=== PATIENT | female | born 1950 | race Caucasian/White ===

== ENCOUNTER 2018-02-04 22:45 | Inpatient (IN) ==
--- NOTE | 2018-02-04 23:49 | Emergency Department Note ---
Abdominal Pain HPI - General Chief Complaint: Abdominal Pain Stated Complaint: Drank Soda Time Seen by Provider: 02/04/18 23:37 Mode of arrival: wheelchair - History of Present Illness HPI Narrative: Patient had previous stomach surgery, currently she is not supposed to drink carbonated beverages. However this evening she drank 2 carbonated beverages. She does have a history of dementia she comes from a long-term. She then proceeded to have a large bowel movement and was mainly concerned about the belching, did have abdominal pain earlier which was associated with the belching and then abdomininal pain subsequently. She does state that she has pain now pain seems to come and go all bloated and distended. She is able to give me some history however does not know which long-term she is from, she' s been there about a year, she has a house in [place] but is not able to go home secondary to memory issues. History of abdominal surgery, she is not sure what kind of surgery she's had a period does tell me that she had an episode of vomiting. Further history is obtained from the daughter who did drive back from [facility]. Daughter was headed to the [facility] and had visited with the patient this morning and apparently she was fairly normal at that time. Later in the day she was complaining of left shoulder pain and then subsequently developed abdominal pain as well as abdominal bloating. 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 MD Complaint: abdominal pain Location: diffuse - Related Data Home Medications Medication Instructions Recorded Confirmed Amoxicillin 500 mg PO Q8H 02/04/18 02/04/18 Ascorbic Acid [Vitamin C with Nena 500 mg PO BID 02/04/18 02/04/18 Hips] Cholecalciferol (Vitd3)/Vit K2 1 each PO DAILY 02/04/18 02/04/18 [Dosoquin Tablet] LORazepam [Ativan] 0.5 mg PO BID 02/04/18 02/04/18 Meloxicam 15 mg PO DAILY 02/04/18 02/04/18 PARoxetine [Paxil] 20 mg PO DAILY 02/04/18 02/04/18 QUEtiapine [Seroquel] 25 mg PO BID 02/04/18 02/04/18 Allergies Allergy/AdvReac Type Severity Reaction Status Date / Time No Known Drug Allergies Allergy Verified 02/04/18 23:19 Review of Systems Limitations: ROS unobtainable due to patients medical condition Constitutional: Denies: fever, chills ENT ED: Denies: throat pain Cardiovascular: Denies: chest pain, palpitations Respiratory: Denies: shortness of breath, cough Gastrointestinal: Reports: abdominal pain, nausea, vomiting Musculoskeletal: Denies: back pain Integumentary: Denies: rash Neurological: Denies: headache Psychiatric: Denies: anxiety Allergic/Immunologic: Denies: facial swelling Abdominal Pain PMH - Past Medical History Medical history: Reports: arthritis, dementia, renal disease, other (memory issues) Surgical history ED: Reports: other (prior abdominal surgery, midline lower abdominal incision. She is status post partial gastrectomy, Vijay fundoplication as well as hysterectomy) Psychiatric history: Reports: anxiety - Social History Smoking status: Never smoker Alcohol use: Reports: None Physical Exam Limitations: physical limitation General appearance: alert, in distress Head: atraumatic, normocephalic Eye: Present: normal appearance, PERRL, EOMI, other (status post cataract surgery) ENT: normal oropharynx, mucous membranes dry, TM's normal bilaterally Neck: Present: normal inspection, full ROM Chest: Present: normal inspection, symmetric chest wall rise Respiratory: Present: normal lung sounds bilaterally. Absent: respiratory distress Cardiovascular: Present: regular rate, normal rhythm, normal heart sounds Abdominal: Present: distention, tenderness, guarding, diminished bowel sounds Abdominal tenderness: Present: epigastrium, moderate Extremities: Present: normal inspection, full ROM, normal capillary refill. Absent: tenderness Back: Present: normal inspection, full ROM. Absent: CVA tenderness (R), CVA tenderness (L) Neurological: Present: alert. Absent: motor sensory deficit Psychiatric: Present: normal affect Skin: Present: warm, dry, intact Course - Reevaluation(s) Reevaluation #1: Abdominal x-rays obtained of. White blood cell count slightly elevated. She is not febrile at this point, she was passing gas in the department. X-rays showing massive air-fluid levels on the lateral film. Consistent with small bowel obstruction, likely partial at this time. Spoke with Dr. Mcclain and he endorsed medical admission, he will see her in the morning to consult, she is a questionable surgical candidate at this point given the fact that she does have dementia, she was a little bit agitated going to the x-ray suite, I don't know if she will comply with NG tube placement but we will attempt to do that with some mild sedation in. The daughter understands does have power of commonwealth attorney and she also has understands that if the patient would need surgery that this would be somewhat difficult in the setting underlying dementia. Patient does have DNR status however daughter still would like treatment, limited interventions which includes NG tube placement, IV fluid administration, medications for comfort. And pain. Vital Signs Temperature 99.1 F H 02/04/18 22:48 Pulse Rate 89 02/04/18 22:48 Respiratory Rate 20 02/04/18 22:48 Pulse Oximetry (%) 98 02/04/18 22:48 Temperature 99.1 F H 02/04/18 22:48 Pulse Rate 89 02/04/18 22:48 Respiratory Rate 20 02/04/18 22:48 Pulse Oximetry (%) 98 02/04/18 22:48 Abdominal Pain - MDM Narrative Medical decision making narrative: Final diagnosis is small bowel obstruction. Partially treated urinary tract infection from the long-term. We will start her on Ancef for that. Discussed with our hospitalist as well as Dr. Mcclain. - Lab Data Result diagrams: 02/04/18 23:59 02/04/18 23:59 Lab Results 02/04/18 02/04/18 02/04/18 Range/Units 23:59 23:59 23:59 WBC 12.6 H (4.5-11.0) K/mcL RBC 3.83 L (4.00-5.20) M/mcL Hgb 12.1 (12.0-15.0) g/dL Hct 36.1 (36.0-48.0) % MCV 94.4 (80.0-100.0) fL MCH 31.5 (26.0-34.0) pg MCHC 33.4 (31.0-36.0) g/dL RDW 13.3 (11.5-14.5) % Plt Count 220 (140-440) K/mcL MPV 8.6 (7.4-10.4) fL Gran % 81.6 H (38.0-78.0) % Lymph % (Auto) 12.2 L (15.5-49.0) % Valley % (Auto) 5.3 (1.0-12.0) % Eos % (Auto) 0.5 (0.0-7.0) % Baso % (Auto) 0.4 (0.0-2.0) % Gran # 10.3 H (1.8-8.0) K/mcL Lymph # (Auto) 1.5 (1.5-4.8) K/mcL Valley # (Auto) 0.7 (0.1-0.9) K/mcL Eos # (Auto) 0.1 (0.0-0.7) K/mcL Baso # (Auto) 0 (0.0-0.3) K/mcL VBG Lactic Acid 1.6 (0.5-2.0) mmol/L Sodium 140 (133-145) mmol/L Potassium 3.9 (3.3-5.1) mmol/L Chloride 103 (96-108) mmol/L Carbon Dioxide 25 (22-30) mmol/L Anion Gap 12.0 (8-16) BUN 30 H (8-23) mg/dl Creatinine 0.9 (0.6-1.1) mg/dl GFR Calculation 66 Glucose 115 H (70-105) mg/dL Calcium 10.2 (8.6-10.4) mg/dl Total Bilirubin 0.2 (0.0-1.0) mg/dL AST 10 (0-37) U/l ALT 8 (0-40) U/l Alkaline Phosphatase 86 (39-117) U/L Total Protein 7.0 (5.9-8.4) gm/dL Albumin 4.2 (3.2-5.2) gm/dL Globulin 2.8 (2.2-3.7) gm/dL Albumin/Globulin Ratio 1.5 (1.0-2.3) Lipase 236 H (7-60) U/L Disposition Pt seen by CLEANING ATTENDANT/PA only: No Clinical Impression: Small bowel obstruction due to adhesions Disposition: Xfer As Inpt ([facility]) Condition: Fair Referrals: Marty Stauffer ARNP [Primary Care Provider] -
[2018-02-04] MEDS ORDERED: LACTATED RINGERS 1,000 ML IV ONE (23:52)
[2018-02-04] MEDS ORDERED: ONDANSETRON 4 MG/2 ML VIAL IV ONE (23:52)
[2018-02-05] MEDS ORDERED: LORazepam 2 MG/ML VIAL IV ONE ×2 (00:22→01:14)
[2018-02-05 00:37] LABS: Basophils # (Auto) 0 K/mcL (0.0-0.3); Basophils % (Auto) 0.4 % (0.0-2.0); Eosinophils # (Auto) 0.1 K/mcL (0.0-0.7); Eosinophils % (Auto) 0.5 % (0.0-7.0); Granulocytes % (Auto) 81.6 % (38.0-78.0); Lymphocytes # (Auto) 1.5 K/mcL (1.5-4.8); Lymphocytes % (Auto) 12.2 % (15.5-49.0); Mean Cell Volume 94.4 fL (80.0-100.0); Mean Corpuscular HGB Conc 33.4 g/dL (31.0-36.0); Mean Corpuscular Hemoglobin 31.5 pg (26.0-34.0); Monocytes # (Auto) 0.7 K/mcL (0.1-0.9); Monocytes % (Auto) 5.3 % (1.0-12.0); Platelet Count 220 K/mcL (140-440); RBC 3.83 M/mcL (4.00-5.20); Red Cell Distribution Width 13.3 % (11.5-14.5)
[2018-02-05 00:58] LABS: ALT/SGPT 8 U/l (0-40); Albumin 4.2 gm/dL (3.2-5.2); Albumin/Globulin Ratio 1.5 (1.0-2.3); Alkaline Phosphatase 86 U/L (39-117); Blood Urea Nitrogen 30 mg/dl (8-23); Lipase 236 U/L (7-60)
[2018-02-05] MEDS ORDERED: diphenhydrAMINE 50 MG/ML VIAL IV ONE (01:14)
[2018-02-05] MEDS ORDERED: ceFAZolin 1 GM VIAL IV SCH (01:30)
[2018-02-05] MEDS ORDERED: ONDANSETRON 4 MG/2 ML VIAL IV PRN (02:24)
[2018-02-05] MEDS ORDERED: ACETAMINOPHEN 325 MG TABLET PO PRN (02:24)
[2018-02-05] MEDS ORDERED: OLANZapine 10 MG VIAL IM PRN (02:24)
[2018-02-05] MEDS ORDERED: PROCHLORPERAZINE 25 MG SUPP.RECT PR PRN (02:24)
[2018-02-05] MEDS ORDERED: IPRATROPIUM/ALBUTEROL 3 ML AMPUL.NEB NEB PRN (02:24)
[2018-02-05] MEDS ORDERED: PROMETHAZINE 25 MG/ML VIAL IM PRN (02:24)
[2018-02-05] MEDS ORDERED: DEXTROSE 5%-1/2NS 1,000 ML IV SCH (02:30)
--- NOTE | 2018-02-05 02:42 | Internal Med History&Physical ---
Medical - H&P: HPI Patient information: Note initiated : 02/05/18 at 2:39 am Service Date, if different from initiated Date: [] Patient: Omi Steve a 67 y/o F admitted on for Drank Soda. Chief Complaint: [] History of present illness: Ms. Steve is a 67 year old F with dementia who resides at [facility] who was brought to because of abdominal pain and belching. History is obtained from the chart and daughter as patient has advanced dementia and unable to give a history. 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 She developed a lot of belching abdominal discomfort and bloating and thus was brought into the ED. Her stomach was distended. In the ER she was found to have a partial small bowel obstruction findings on x- ray. She did have a large bowel movement while she was here. Case is discussed with Dr. Mcclain who instructed them to place an NG tube placement and he would see the patient in the morning. ER also continue treatment for urinary tract infection that she was recently started treatment on. ROS: Unable to obtain given patient's advanced dementia Medical - H&P: PMH Medical history: Medical history: Dementia frontotemporal Anxiety CKD Surgical history: Gastric volvulus with subsequent partial gastrectomy and Vijay fundoplication Hysterectomy Family history: Mother had memory issues Father had an unknown cancer Social history: No smoking history no alcohol use occasionally uses a walker Resides at [facility] Medical - H&P: Meds Home Medications Medication Instructions Recorded Confirmed Type Amoxicillin 500 mg PO Q8H 02/04/18 02/04/18 History Ascorbic Acid [Vitamin C with Nena 500 mg PO BID 02/04/18 02/04/18 History Hips] Cholecalciferol (Vitd3)/Vit K2 1 each PO DAILY 02/04/18 02/04/18 History [Dosoquin Tablet] LORazepam [Ativan] 0.5 mg PO BID 02/04/18 02/04/18 History Meloxicam 15 mg PO DAILY 02/04/18 02/04/18 History PARoxetine [Paxil] 20 mg PO DAILY 02/04/18 02/04/18 History QUEtiapine [Seroquel] 25 mg PO BID 02/04/18 02/04/18 History Allergies Allergy/AdvReac Type Severity Reaction Status Date / Time No Known Drug Allergies Allergy Verified 02/04/18 23:19 Medical - H&P: Exam - Constitutional Vitals: Temp Pulse Resp BP Pulse Ox 99.1 F H 106 H 16 177/100 95 02/04/18 22:48 02/05/18 02:21 02/05/18 01:46 02/05/18 02:21 02/05/18 02:21 Exam: General: Alert, Awake, agitated Eyes/N/T: EOMI, pupils equal round reactive to light, dry mucous membranes Head/Neck: neck supple, normocephalic atraumatic CV: RRR, No murmurs, normal s1/s2 Pulm: Clear b/l, no wheezing/rhonchi/rales Abd: soft, distended, +BS x4 Ext: no clubbing/cyanosis/edema Neuro: Alert, dementia, no focal deficits, moves all extremities Skin: warm/dry Medical - H&P: Reslt - Labs CBC & Chem 7: 02/04/18 23:59 02/04/18 23:59 Labs: Short CBC 02/04/18 Range/Units 23:59 WBC 12.6 H (4.5-11.0) K/mcL Hgb 12.1 (12.0-15.0) g/dL Hct 36.1 (36.0-48.0) % Plt Count 220 (140-440) K/mcL BMP 02/04/18 23:59 Sodium 140 Potassium 3.9 Chloride 103 Carbon Dioxide 25 BUN 30 H Creatinine 0.9 Glucose 115 H Calcium 10.2 Liver Function 02/04/18 Range/Units 23:59 Total Bilirubin 0.2 (0.0-1.0) mg/dL AST 10 (0-37) U/l ALT 8 (0-40) U/l Alkaline Phosphatase 86 (39-117) U/L Albumin 4.2 (3.2-5.2) gm/dL Medical - H&P: A/P - Narrative A/P Narrative: A: *pSBO: *Advanced Dementia *Anxiety: *current tx for UTI: *Volume Depletion: * P: -NGT -NPO, IVF's -Surgery consulted -will defer f/u imaging to surgeon who will see in AM -pain control -Ambulate, IS - -ppx: SCD No Code
[2018-02-05] MEDS: 0.9 % SODIUM CHLORIDE 1,000 ML IV SCH ×3 (04:58→19:57)
[2018-02-05] MEDS: AMPICILLIN SODIUM 1 GM in 0.9 % SODIUM CHLORIDE 50 ML IV SCH ×3 (05:01→18:23)
--- NOTE | 2018-02-05 05:43 | XRay Report ---
CLINICAL INFORMATION: abd bloating COMPARISON: None. FINDINGS: The stomach and multiple loops of small bowel are moderately dilated. The colon is moderately decompressed. No free air, soft tissue mass, pathologic calcification or organomegaly. Severe degeneration of the left hip noted IMPRESSION: High-grade distal small bowel obstruction Severe left hip degenerative change Interpreted and Authenticated by: Nigel Richardson 02/05/18
--- NOTE | 2018-02-05 05:47 | XRay Report ---
CLINICAL INFORMATION: Distal small bowel structures. The NG placement COMPARISON: None. FINDINGS: NG tip appears to be coiled in a hiatal hernia sac. Stomach and multiple loops of small bowel are moderately dilated with a decompressed colon compatible with a high-grade distal small bowel obstruction. No free air. IMPRESSION: 1. High-grade distal small bowel obstruction 2. Malpositioned NG tube likely present within a hiatal hernia sac. Suggest: With alignment to 12 cm and insufflating this region with to 300 cc of air using a syringe and then advanced the tube Interpreted and Authenticated by: Nigel Richardson 02/05/18
[2018-02-05 09:16] LABS: Basophils # (Auto) 0 K/mcL (0.0-0.3); Basophils % (Auto) 0.4 % (0.0-2.0); Eosinophils # (Auto) 0.1 K/mcL (0.0-0.7); Eosinophils % (Auto) 1.1 % (0.0-7.0); Granulocytes % (Auto) 66.9 % (38.0-78.0); Lymphocytes # (Auto) 2.5 K/mcL (1.5-4.8); Lymphocytes % (Auto) 23.4 % (15.5-49.0); Mean Corpuscular HGB Conc 33.3 g/dL (31.0-36.0); Mean Corpuscular Hemoglobin 31.7 pg (26.0-34.0); Monocytes # (Auto) 0.9 K/mcL (0.1-0.9); Monocytes % (Auto) 8.2 % (1.0-12.0); Platelet Count 217 K/mcL (140-440); RBC 3.81 M/mcL (4.00-5.20); Red Cell Distribution Width 13.3 % (11.5-14.5)
[2018-02-05 09:31] LABS: ALT/SGPT 8 U/l (0-40); Albumin 3.7 gm/dL (3.2-5.2); Albumin/Globulin Ratio 1.3 (1.0-2.3); Alkaline Phosphatase 77 U/L (39-117); Bilirubin,Direct < 0.2 mg/dL (0.0-0.3); Blood Urea Nitrogen 24 mg/dl (8-23); Gamma Glutamyl Transpeptidase 7 U/L (5-36); Uric Acid 5.5 mg/dL (2.5-8.0)
--- NOTE | 2018-02-05 10:35 | General Surgery Consult Note ---
History of Present Illness Patient information: Note initiated : 02/05/18 at 10:32 am Service Date, if different from initiated Date: [] Patient: Omi Steve 67 y/o F admitted on 02/05/18 for Drank Soda. Chief Complaint: [] Reason for consult: abdominal pain Requesting physician: Te Ortega History of present illness: 67 --year-old female who is admitted with presumptive diagnosis of small bowel obstruction.. The patient and educational programming director give a history of her developing increased abdominal distention with increasing burping yesterday after drinking 2 carbonated beverages. She had a regular bowel movement yesterday and has been passing flatus. She has an abdominal x-ray which shows dilated stomach small bowel and colon. The patient is too agitated to cooperate with CT scan. She has had 3 bowel movements over the past 12 hours. Nasogastric decompression was attempted but she has a very large hiatal hernia and the NG tube coils up in the hernia intrathoracic portion. Review of Systems ROS unobtainable: due to mental status (patient has significant dementia and does not answer appropriately to questioning about past history) Past History Past medical history: Degenerative dementia Degenerative joint disease Chronic kidney disease Chronic anxiety with paranoia Past surgical history: Abdominal hysterectomy Partial gastrectomy with Vijay fundoplication Past family history: history taken from medical records Dementia Hypertension Past social history: Never smoker Does not use alcohol Resides in nursing care facility Medications and Allergies Home Medications Medication Instructions Recorded Confirmed Type Amoxicillin 500 mg PO Q8H 02/04/18 02/05/18 History Ascorbic Acid [Vitamin C with Nena 500 mg PO BID 02/04/18 02/04/18 History Hips] Cholecalciferol (Vitd3)/Vit K2 1 each PO DAILY 02/04/18 02/05/18 History [Dosoquin Tablet] LORazepam [Ativan] 0.5 mg PO BID 02/04/18 02/05/18 History Meloxicam 15 mg PO DAILY 02/04/18 02/05/18 History PARoxetine [Paxil] 20 mg PO DAILY 02/04/18 02/05/18 History QUEtiapine [Seroquel] 25 mg PO BID 02/04/18 02/05/18 History Allergies Allergy/AdvReac Type Severity Reaction Status Date / Time No Known Drug Allergies Allergy Verified 02/05/18 05:15 Exam Temp Pulse Resp BP Pulse Ox 98.6 F 78 20 136/81 91 02/05/18 06:36 02/05/18 04:30 02/05/18 06:36 02/05/18 06:36 02/05/18 04:30 - General physical appearance well developed, well nourished, no distress, no pain, chronically ill - Eyes PERRL, normal ocular movement. negative: icteric - ENT normal pinna, normal nares, normal mucosa, no hearing loss, no congestion, deviated nasal septum - Head Head exam IM: Present: atraumatic, normal inspection, normocephalic - Neck no masses, no bruits, trachea midline, no lymphadenopathy, no venous distension - Cardiovascular Cardiovascular exam IM: Present: normal rate and rhythm, RRR, +S1, +S2. Absent : JVD, tachycardia - Respiratory normal expansion, normal respiratory effort, clear to auscultation - Abdomen Abdomen: Present: soft, non tender, bowel sounds, distended (no abdominal distention appreciated) Hernia: Present: none - Genitourinary Present: normal external genitalia - Integumentary Present: no rash, no growths, no abnormal pigmentation - Neurologic Present: normal coordination, normal sensation, disoriented, confused, memory loss - Musculoskeletal Present: other ( gait not tested) Results - Labs 02/05/18 08:47 02/05/18 08:47 Abnormal lab results 02/04/18 02/04/18 02/05/18 Range/Units 23:59 23:59 08:47 WBC 12.6 H (4.5-11.0) K/mcL RBC 3.83 L 3.81 L (4.00-5.20) M/mcL Gran % 81.6 H (38.0-78.0) % Lymph % (Auto) 12.2 L (15.5-49.0) % Gran # 10.3 H (1.8-8.0) K/mcL BUN 30 H (8-23) mg/dl Glucose 115 H (70-105) mg/dL Lipase 236 H (7-60) U/L 02/05/18 Range/Units 08:47 WBC (4.5-11.0) K/mcL RBC (4.00-5.20) M/mcL Gran % (38.0-78.0) % Lymph % (Auto) (15.5-49.0) % Gran # (1.8-8.0) K/mcL BUN 24 H (8-23) mg/dl Glucose (70-105) mg/dL Lipase (7-60) U/L Diabetes panel 02/04/18 02/05/18 Range/Units 23:59 08:47 Sodium 140 141 (133-145) mmol/L Potassium 3.9 3.9 (3.3-5.1) mmol/L Chloride 103 105 (96-108) mmol/L Carbon Dioxide 25 24 (22-30) mmol/L BUN 30 H 24 H (8-23) mg/dl Creatinine 0.9 0.7 (0.6-1.1) mg/dl Glucose 115 H 85 (70-105) mg/dL Calcium 10.2 9.4 (8.6-10.4) mg/dl AST 10 12 (0-37) U/l ALT 8 8 (0-40) U/l Alkaline Phosphatase 86 77 (39-117) U/L Total Protein 7.0 6.5 (5.9-8.4) gm/dL Albumin 4.2 3.7 (3.2-5.2) gm/dL Triglycerides 82 (<150) mg/dl Calcium panel 02/04/18 02/05/18 Range/Units 23:59 08:47 Calcium 10.2 9.4 (8.6-10.4) mg/dl Phosphorus 2.7 (2.7-4.5) mg/dL Albumin 4.2 3.7 (3.2-5.2) gm/dL Pituitary panel 02/04/18 02/05/18 Range/Units 23:59 08:47 Sodium 140 141 (133-145) mmol/L Potassium 3.9 3.9 (3.3-5.1) mmol/L Chloride 103 105 (96-108) mmol/L Carbon Dioxide 25 24 (22-30) mmol/L BUN 30 H 24 H (8-23) mg/dl Creatinine 0.9 0.7 (0.6-1.1) mg/dl Glucose 115 H 85 (70-105) mg/dL Calcium 10.2 9.4 (8.6-10.4) mg/dl Adrenal panel 02/04/18 02/05/18 Range/Units 23:59 08:47 Sodium 140 141 (133-145) mmol/L Potassium 3.9 3.9 (3.3-5.1) mmol/L Chloride 103 105 (96-108) mmol/L Carbon Dioxide 25 24 (22-30) mmol/L BUN 30 H 24 H (8-23) mg/dl Creatinine 0.9 0.7 (0.6-1.1) mg/dl Glucose 115 H 85 (70-105) mg/dL Calcium 10.2 9.4 (8.6-10.4) mg/dl Total Bilirubin 0.2 0.2 (0.0-1.0) mg/dL AST 10 12 (0-37) U/l ALT 8 8 (0-40) U/l Alkaline Phosphatase 86 77 (39-117) U/L Total Protein 7.0 6.5 (5.9-8.4) gm/dL Albumin 4.2 3.7 (3.2-5.2) gm/dL All other labs normal. Assessment and Plan (1) Adynamic ileus The patient has had multiple bowel movements and has witnessed flatus.. Her x -ray pattern is more suggestive of adynamic ileus with dilated stomach small bowel and colon. Since she is having regular bowel movements is unlikely that she is obstructed. Will treat with MiraLAX and have follow-up abdominal x- rays.. Patient may have clear liquids for comfort.. Status: Acute (2) Dementia Status: Acute (3) Anxiety disorder Status: Acute
[2018-02-05] MEDS: FAMOTIDINE/PF 20 MG/2 ML VIAL IV SCH ×2 (10:45→19:56)
[2018-02-05] MEDS: LORazepam 0.5 MG TABLET PO SCH ×2 (10:46→19:56)
[2018-02-05] MEDS: PARoxetine 20 MG TABLET PO SCH (10:46)
[2018-02-05] MEDS: QUEtiapine 25 MG TABLET PO SCH ×2 (10:46→19:56)
[2018-02-05] MEDS: POLYETHYLENE GLYCOL 3350 17 GM PACKET PO SCH ×2 (11:40→19:56)
--- NOTE | 2018-02-05 12:36 | XRay Report ---
CLINICAL INFORMATION: NG tube repositioning COMPARISON: 02/05/2018 FINDINGS: The NG tube remains malpositioned within a hiatal hernia. Stomach, and multiple loops small bowel show moderate dilatation of bowel compatible with a distal small bowel obstruction. No free air IMPRESSION: Second film showing malpositioned NG tube in a hiatal hernia. There is likely significant constriction at the esophageal hiatus preventing tube entry into the gastric antrum.. Suggest: fluoroscopic guided tube placement Interpreted and Authenticated by: Nigel Richardson 02/05/18
[2018-02-06] MEDS: AMPICILLIN SODIUM 1 GM in 0.9 % SODIUM CHLORIDE 50 ML IV SCH ×4 (00:17→18:16)
[2018-02-06] MEDS: POLYETHYLENE GLYCOL 3350 17 GM PACKET PO SCH ×2 (03:46→11:13)
[2018-02-06 05:36] LABS: Appearance,Urine CLEAR; Bacteria,Urine 0 /hpf (0); Bilirubin,Urine NEG (NEG); Color,Urine YELLOW; Glucose,Urine (UA) NEGATIVE (NEG); Leukocyte Esterase,Urine 75 /uL (NEG); Mucus,Urine MOD /hpf (0); Protein,Urine NEG (NEG); Specific Gravity,Urine 1.013 (1.000-1.035); Urine Blood NEG mg/dL (<0.03); Urine RBC 0 /hpf (0-1); Urine Squamous Epithelial Cell < 1 /hpf (0-4); Urine WBC 7 /hpf (0-4); Urobilinogen,Urine NEG (NEG)
--- NOTE | 2018-02-06 07:00 | Internal Med Progress Note ---
Medical - PN: Subj Patient information: Note initiated : 02/06/18 at 6:56 am Service Date, if different from initiated Date: [] Patient: Omi Steve a 67 y/o F admitted on 02/05/18 for Drank Soda. Chief Complaint: [] Interval history: Ms. Steve is a 67 year old F with dementia who resides at [facility] who was brought to because of abdominal pain and belching. History is obtained from the chart and daughter as patient has advanced dementia and unable to give a history. 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 She developed a lot of belching abdominal discomfort and bloating and thus was brought into the ED. Her stomach was distended. In the ER she was found to have a partial small bowel obstruction findings on x- ray. She did have a large bowel movement while she was here. Case is discussed with Dr. Mcclain who instructed them to place an NG tube placement and he would see the patient in the morning. ER also continue treatment for urinary tract infection that she was recently started treatment on. 02/06 She is overnight. Incontinent of stool. Daughter at bedside. tolerating clears , and also had icecream last night. Unable to gather review of systems given dementia - Constitutional Vitals: Vital Signs Temp Pulse Resp BP Pulse Ox 98.2 F 64 16 111/65 96 02/06/18 04:00 02/06/18 04:00 02/06/18 04:00 02/06/18 04:00 02/06/18 04:00 Period Temp Pulse Resp BP Sys/Hall Pulse Ox Last 24 Hr 98.2 F-98.6 F 60-75 14-18 104-124/56-66 94-97 Intake and Output 02/05/18 02/06/18 02/06/18 21:59 05:59 13:59 Intake Total 1290 / 1290 220 / 220 Output Total 1000 / 1000 Balance 1289 / 1289 -780 / -780 Weight 58.06 kg Intake & Output: Intake & Output 02/05/18 02/06/18 02/06/18 21:59 05:59 13:59 Intake Total 1290 / 1290 220 / 220 Output Total 1000 / 1000 Balance 1289 / 1289 -780 / -780 Weight 58.06 kg Intake: IV 1050 / 1050 50 / 50 Sodium Chloride 0.9% 1,000 ml @ 1000 / 1000 75 mls/hr IV .[id number] [facility] Rx#: [id number] Ampicillin 1 gm In Sodium 50 / 50 50 / 50 Chloride 0.9% 50 ml @ 100 mls/ hr IV Q6H [facility] Rx#:[id number] Oral 240 / 240 170 / 170 Output: Void Amount 1000 / 1000 # of times incontinent of urine Other: Meal jello 2 ice creams Percent of Meal Consumed 100% 100% Feeding Ability Independent Independent Urine Appearance Clear Urine Color Dark Yellow Urine Odor Normal # of times incontinent of 1 Bowels Exam: General: Alert, Awake, NAD Eyes/N/T: EOMI, Head/Neck: neck supple, normocephalic atraumatic CV: RRR, No murmurs, normal s1/s2 Pulm: Clear b/l, no wheezing/rhonchi/rales Abd: soft, nontender, +BS x4 Ext: no clubbing/cyanosis/edema Neuro: Alert, dementia, no focal deficits, moves all extremities Skin: warm/dry Medical - PN: Obj Da - Labs CBC & Chem 7: 02/05/18 08:47 02/05/18 08:47 Labs: Abnormal Lab Results 02/06/18 02/05/18 02/05/18 02:36 08:47 08:47 WBC RBC 3.81 L Gran % Lymph % (Auto) Gran # BUN 24 H Glucose Lipase Ur Leukocyte Esterase 75 A Urine WBC 7 H 02/04/18 02/04/18 23:59 23:59 WBC 12.6 H RBC 3.83 L Gran % 81.6 H Lymph % (Auto) 12.2 L Gran # 10.3 H BUN 30 H Glucose 115 H Lipase 236 H Ur Leukocyte Esterase Urine WBC Meds: Medications Acetaminophen (Tylenol) 650 mg PO Q6HP PRN PRN Reason: PAIN/FEVER > 101 Albuterol/Ipratropium (Duoneb) 3 ml NEB Q4HRT PRN PRN Reason: dyspnea Famotidine (Pepcid) 20 mg IV Q12 [facility] Last Admin: 02/05/18 19:56 Dose: 20 mg Ampicillin Sodium 1 gm/ Sodium (Chloride) 50 mls @ 100 mls/hr IV Q6H [facility] Last Admin: 02/06/18 05:53 Dose: 100 mls/hr Sodium Chloride (Sodium Chloride 0.9%) 1,000 mls @ 75 mls/hr IV .[id number] [facility] Last Admin: 02/05/18 19:57 Dose: 75 mls/hr Lorazepam (Ativan) 0.5 mg PO BID [facility] Last Admin: 02/05/18 19:56 Dose: 0.5 mg Morphine Sulfate (Morphine) 0 mg IV Q3HP PRN PRN Reason: PAIN LEVEL >3 Last Admin: 02/05/18 09:50 Dose: 3 mg Ondansetron HCl (Zofran) 4 mg IV Q4HP PRN PRN Reason: Nausea And Vomiting Paroxetine HCl (Paxil) 20 mg PO DAILY [facility] Last Admin: 02/05/18 10:46 Dose: 20 mg Polyethylene Glycol (Miralax) 17 gm PO Q8H [facility] Stop: 02/06/18 11:01 Last Admin: 02/06/18 03:46 Dose: 17 gm Prochlorperazine Maleate (Compazine) 12.5 mg [place] Q12HP PRN PRN Reason: Nausea And Vomiting Promethazine HCl (Phenergan) 12.5 mg IM Q6HP PRN PRN Reason: Nausea And Vomiting Quetiapine Fumarate (Seroquel) 25 mg PO BID [facility] Last Admin: 02/05/18 19:56 Dose: 25 mg Medical - PN: A/P - Time Spent With Patient Total time spent is greater than 50% in coordination of care (as documented) at patient's floor/unit and/or counseling patient: - Narrative A/P Narrative: A: *Ileus: resolving - *Advanced Dementia: *Anxiety: *current tx for UTI: *Volume Depletion: * P: -NGT -clear liquids started, advance -Surgery following -Abx until UC return -pain control -Ambulate, IS -bowel regimen -ppx: heparin No Code Medical - PN: Qual - Stroke Symptom Onset Unknown: No - VTE Deep Vein Thrombosis/Pulmonary Embolism Present on Admission: No
[2018-02-06] MEDS: 0.9 % SODIUM CHLORIDE 1,000 ML IV SCH (07:32)
[2018-02-06] MEDS: FAMOTIDINE/PF 20 MG/2 ML VIAL IV SCH ×2 (08:43→22:13)
[2018-02-06] MEDS: HEPARIN 5,000 UNIT/ML VIAL SQ SCH ×2 (08:45→22:13)
[2018-02-06] MEDS: PARoxetine 20 MG TABLET PO SCH (08:48)
[2018-02-06] MEDS: LORazepam 0.5 MG TABLET PO SCH ×2 (08:48→22:13)
[2018-02-06] MEDS: QUEtiapine 25 MG TABLET PO SCH ×2 (08:48→22:13)
--- NOTE | 2018-02-06 10:39 | XRay Report ---
CLINICAL INFORMATION: FOLLOW -UP OF SMALL BOWEL OBSTRUCTION COMPARISON: 02/05/2018 FINDINGS: NG tube has been removed. Moderate hiatal hernia again noted. Small bowel obstruction pattern has nearly resolved. The stomach and small bowel out returned to near normal in caliber There is now moderate gas in the colon. No free air. Severe degenerative change left hip. IMPRESSION: Resolving distal small bowel obstruction pattern. Moderate hiatal hernia Severe degeneration left hip Interpreted and Authenticated by: Nigel Richardson 02/06/18
--- NOTE | 2018-02-06 15:53 | General Surgery Progress Note ---
Subjective Patient reports: feels better, pain is less, tolerating liquids well, flatus, bowel movement, afebrile Narrative: Note initiated : 02/06/18 at 3:51 pm Service Date, if different from initiated Date: [] Patient: Omi Steve 67 y/o F admitted on 02/05/18 for Drank Soda. Chief Complaint: [patient is improved. She had multiple large bowel movements last evening and has had 2 witnessed bowel movements today. Her abdominal x- rays on improved with primarily small bowel gas.. She is nonverbal today..] Objective Temp Pulse Resp BP Pulse Ox 98.8 F 55 L 14 125/64 95 02/06/18 11:26 02/06/18 11:26 02/06/18 11:26 02/06/18 11:26 02/06/18 11:26 - Additional Data Intake & Output - Last 24 hours: Intake & Output 02/04/18 02/05/18 02/06/18 02/07/18 05:59 05:59 05:59 05:59 Intake Total 1050 / 1050 2040 / 2040 919 / 919 Output Total 1303 / 1303 650 / 650 Balance 1040 / 1040 737 / 737 269 / 269 Weight 170 lb 128 lb 128 lb - General physical appearance well developed, well nourished, no distress, no pain - Eyes PERRL, normal ocular movement - ENT normal pinna, normal nares, normal mucosa, no hearing loss, no congestion - Neck no masses, no bruits, trachea midline, no lymphadenopathy, no venous distension - Respiratory normal expansion, normal respiratory effort, clear to auscultation - Cardiovascular Cardiovascular exam: Present: normal rate and rhythm, RRR, +S1, +S2. Absent: JVD, tachycardia - Abdomen non tender (abdomen is soft and nontender; good active bowel sounds; no palpable masses) - Integumentary no rash, no growths, no abnormal pigmentation - Neurologic disoriented - Labs 02/05/18 08:47 02/05/18 08:47 Assessment and Plan (1) Adynamic ileus Status: Acute Assessment and plan: Patient continues to improve on a daily basis.. Will check abdominal x-rays in the morning.. She probably can be advanced to a regular diet tomorrow Current Visit: Yes (2) Dementia Status: Acute Current Visit: Yes (3) Anxiety disorder Status: Acute Current Visit: Yes - Time Spent With Patient Total time spent is greater than 50% in coordination of care (as documented) at patient's floor/unit and/or counseling patient:
[2018-02-07] MEDS: AMPICILLIN SODIUM 1 GM in 0.9 % SODIUM CHLORIDE 50 ML IV SCH ×5 (00:18→23:31)
--- NOTE | 2018-02-07 07:03 | Internal Med Progress Note ---
Medical - PN: Subj Patient information: Note initiated : 02/07/18 at 7:00 am Service Date, if different from initiated Date: [] Patient: Omi Steve a 67 y/o F admitted on 02/05/18 for Drank Soda. Chief Complaint: [] Interval history: Ms. Steve is a 67 year old F with dementia who resides at [facility] who was brought to because of abdominal pain and belching. History is obtained from the chart and daughter as patient has advanced dementia and unable to give a history. 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 She developed a lot of belching abdominal discomfort and bloating and thus was brought into the ED. Her stomach was distended. In the ER she was found to have a partial small bowel obstruction findings on x- ray. She did have a large bowel movement while she was here. Case is discussed with Dr. Mcclain who instructed them to place an NG tube placement and he would see the patient in the morning. ER also continue treatment for urinary tract infection that she was recently started treatment on. 02/06 She is overnight. Incontinent of stool. Daughter at bedside. tolerating clears , and also had ice cream last night. 02/07 Daughter bedside. No overnight issues. Several bowel movements yesterday. Tolerating diet. Unable to gather review of systems given dementia - Constitutional Vitals: Vital Signs Temp Pulse Resp BP Pulse Ox 98.2 F 56 L 16 136/71 96 02/07/18 04:00 02/07/18 04:00 02/07/18 04:00 02/07/18 04:00 02/07/18 04:00 Period Temp Pulse Resp BP Sys/Hall Pulse Ox Last 24 Hr 98.2 F-99.1 F 50-77 14-16 119-145/64-73 95-96 Intake and Output 02/06/18 02/07/18 02/07/18 21:59 05:59 13:59 Intake Total 170 / 170 170 / 170 Output Total 800 / 800 600 / 600 Balance -630 / -630 -430 / -430 Weight 57.833 kg Intake & Output: Intake & Output 02/06/18 02/07/18 02/07/18 21:59 05:59 13:59 Intake Total 170 / 170 170 / 170 Output Total 800 / 800 600 / 600 Balance -630 / -630 -430 / -430 Weight 57.833 kg Intake: IV 50 / 50 50 / 50 Ampicillin 1 gm In Sodium 50 / 50 50 / 50 Chloride 0.9% 50 ml @ 100 mls/ hr IV Q6H [facility] Rx#:[id number] Oral 120 / 120 120 / 120 Output: Void Amount 800 / 800 600 / 600 Other: Meal Dinner Percent of Meal Consumed 75% Feeding Ability Independent Exam: General: Alert, Awake, NAD Eyes/N/T: EOMI, Head/Neck: neck supple, CV: RRR, 1/6SM Pulm: Clear b/l, no wheezing/rhonchi/rales Abd: soft, nontender, +BS x4 Ext: no clubbing/cyanosis/edema Neuro: Alert, dementia, no focal deficits, moves all extremities Skin: warm/dry Medical - PN: Obj Da - Labs CBC & Chem 7: 02/05/18 08:47 02/05/18 08:47 Labs: Abnormal Lab Results 02/06/18 02/05/18 02/05/18 02:36 08:47 08:47 WBC RBC 3.81 L Gran % Lymph % (Auto) Gran # BUN 24 H Glucose Lipase Ur Leukocyte Esterase 75 A Urine WBC 7 H 02/04/18 02/04/18 23:59 23:59 WBC 12.6 H RBC 3.83 L Gran % 81.6 H Lymph % (Auto) 12.2 L Gran # 10.3 H BUN 30 H Glucose 115 H Lipase 236 H Ur Leukocyte Esterase Urine WBC Meds: Medications Acetaminophen (Tylenol) 650 mg PO Q6HP PRN PRN Reason: PAIN/FEVER > 101 Albuterol/Ipratropium (Duoneb) 3 ml NEB Q4HRT PRN PRN Reason: dyspnea Famotidine (Pepcid) 20 mg IV Q12 [facility] Last Admin: 02/06/18 22:13 Dose: 20 mg Heparin Sodium (Porcine) (Heparin) 5,000 unit SQ Q12 [facility] Last Admin: 02/06/18 22:13 Dose: 5,000 unit Ampicillin Sodium 1 gm/ Sodium (Chloride) 50 mls @ 100 mls/hr IV Q6H [facility] Last Admin: 02/07/18 06:07 Dose: 100 mls/hr Lorazepam (Ativan) 0.5 mg PO BID [facility] Last Admin: 02/06/18 22:13 Dose: 0.5 mg Morphine Sulfate (Morphine) 0 mg IV Q3HP PRN PRN Reason: PAIN LEVEL >3 Last Admin: 02/05/18 09:50 Dose: 3 mg Ondansetron HCl (Zofran) 4 mg IV Q4HP PRN PRN Reason: Nausea And Vomiting Paroxetine HCl (Paxil) 20 mg PO DAILY [facility] Last Admin: 02/06/18 08:48 Dose: 20 mg Prochlorperazine Maleate (Compazine) 12.5 mg [place] Q12HP PRN PRN Reason: Nausea And Vomiting Promethazine HCl (Phenergan) 12.5 mg IM Q6HP PRN PRN Reason: Nausea And Vomiting Quetiapine Fumarate (Seroquel) 25 mg PO BID [facility] Last Admin: 02/06/18 22:13 Dose: 25 mg Medical - PN: A/P - Time Spent With Patient Total time spent is greater than 50% in coordination of care (as documented) at patient's floor/unit and/or counseling patient: - Narrative A/P Narrative: A: *Ileus: resolving - *Advanced Dementia: *Anxiety: *current tx for UTI (h/o Enterococcus) *Volume Depletion: resolved * P: -full liquids -Surgery following -Ampicillin until UC return, d/c with amoxicillin -pain control -Ambulate, IS -bowel regimen -pt/ot, CM -ppx: heparin No Code Medical - PN: Qual - Stroke Symptom Onset Unknown: No - VTE Deep Vein Thrombosis/Pulmonary Embolism Present on Admission: No
[2018-02-07] MEDS: PARoxetine 20 MG TABLET PO SCH (08:43)
[2018-02-07] MEDS: QUEtiapine 25 MG TABLET PO SCH ×2 (08:45→20:48)
[2018-02-07] MEDS: LORazepam 0.5 MG TABLET PO SCH ×2 (08:45→20:48)
[2018-02-07] MEDS: FAMOTIDINE/PF 20 MG/2 ML VIAL IV SCH ×2 (08:46→20:49)
[2018-02-07] MEDS: HEPARIN 5,000 UNIT/ML VIAL SQ SCH ×2 (08:46→20:49)
[2018-02-07] MEDS: VALPROIC ACIDS 250 MG/5 ML ORAL.SOL PO SCH ×2 (09:34→20:50)
--- NOTE | 2018-02-07 17:14 | General Surgery Progress Note ---
Subjective Patient reports: feels better, pain is less, tolerating liquids well, flatus, bowel movement, afebrile Narrative: Note initiated : 02/07/18 at 5:13 pm Service Date, if different from initiated Date: [] Patient: Omi Steve 67 y/o F admitted on 02/05/18 for Drank Soda. Chief Complaint: [patient continues to improve with regard to her GI tract. She is having bowel movements and is tolerating diet. Her abdominal exam is benign and her abdominal x-rays shows clearing of the large volume of gas. She is advanced to a regular diet and should be stable for discharge tomorrow.] Objective Temp Pulse Resp BP Pulse Ox 99.1 F H 59 L 16 127/71 94 02/07/18 15:34 02/07/18 15:34 02/07/18 15:34 02/07/18 15:34 02/07/18 15:34 - Additional Data Intake & Output - Last 24 hours: Intake & Output 02/05/18 02/06/18 02/07/18 02/08/18 05:59 05:59 05:59 05:59 Intake Total 1050 / 1050 2040 / 0 1309 / 1309 490 / 490 Output Total 1303 / 1303 2049 / 2049 750 / 750 Balance 1040 / 1040 737 / 737 -741 / -741 -260 / -260 Weight 170 lb 128 lb 127 lb 8 oz - General physical appearance well developed, well nourished, no distress - Eyes PERRL, normal ocular movement - ENT normal pinna, normal nares, normal mucosa, no hearing loss, no congestion - Neck no masses, no bruits, trachea midline, no lymphadenopathy, no venous distension - Respiratory normal expansion, normal respiratory effort, clear to auscultation - Cardiovascular Cardiovascular exam: Present: normal rate and rhythm, RRR, +S1, +S2. Absent: JVD, tachycardia - Abdomen non tender, bowel sounds (present), surgical scars (none), masses (none), distended (there is minimal tenderness and abdominal exam is benign) - Integumentary no rash, no growths, no abnormal pigmentation - Neurologic disoriented, confused - Labs 02/08/18 07:59 02/08/18 07:59 Assessment and Plan (1) Adynamic ileus Status: Acute Assessment and plan: Patient continues to improve on a daily basis.. . advanced to regular diet Probable stable for discharge tomorrow will sign off Current Visit: Yes (2) Dementia Status: Acute Current Visit: Yes (3) Anxiety disorder Status: Acute Current Visit: Yes - Time Spent With Patient Total time spent is greater than 50% in coordination of care (as documented) at patient's floor/unit and/or counseling patient:
[2018-02-08] MEDS: AMPICILLIN SODIUM 1 GM in 0.9 % SODIUM CHLORIDE 50 ML IV SCH ×2 (05:42→11:54)
--- NOTE | 2018-02-08 07:01 | Internal Med Progress Note ---
Medical - PN: Subj Patient information: Note initiated : 02/08/18 at 6:59 am Service Date, if different from initiated Date: [] Patient: Omi Steve a 67 y/o F admitted on 02/05/18 for Drank Soda. Chief Complaint: [] Interval history: Ms. Steve is a 67 year old F with dementia who resides at [facility] who was brought to because of abdominal pain and belching. History is obtained from the chart and daughter as patient has advanced dementia and unable to give a history. 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 She developed a lot of belching abdominal discomfort and bloating and thus was brought into the ED. Her stomach was distended. In the ER she was found to have a partial small bowel obstruction findings on x- ray. She did have a large bowel movement while she was here. Case is discussed with Dr. Mcclain who instructed them to place an NG tube placement and he would see the patient in the morning. ER also continue treatment for urinary tract infection that she was recently started treatment on. 02/06 She is overnight. Incontinent of stool. Daughter at bedside. tolerating clears , and also had ice cream last night. 02/07 Daughter bedside. No overnight issues. Several bowel movements yesterday. Tolerating diet. 02/08 diet advanced this morning, tolerating breakfast, small BM last night. working with PT. no new complaints. Unable to gather review of systems given dementia - Constitutional Vitals: Vital Signs Temp Pulse Resp BP Pulse Ox 98.6 F 50 L 16 119/62 94 02/08/18 03:21 02/08/18 03:21 02/08/18 03:21 02/08/18 03:21 02/08/18 03:21 Period Temp Pulse Resp BP Sys/Hall Pulse Ox Last 24 Hr 98.6 F-99.1 F 50-76 16-16 100-154/57-97 92-96 Intake and Output 02/07/18 02/08/18 02/08/18 21:59 05:59 13:59 Intake Total 300 / 300 250 / 250 50 / 50 Output Total 1001 / 1001 Balance 300 / 300 -751 / -751 50 / 50 Weight 57.408 kg Intake & Output: Intake & Output 02/07/18 02/08/18 02/08/18 21:59 05:59 13:59 Intake Total 300 / 300 250 / 250 50 / 50 Output Total 1001 / 1001 Balance 300 / 300 -751 / -751 50 / 50 Weight 57.408 kg Intake: IV 100 / 100 50 / 50 50 / 50 Ampicillin 1 gm In Sodium 100 / 100 50 / 50 50 / 50 Chloride 0.9% 50 ml @ 100 mls/ hr IV Q6H [facility] Rx#:[id number] Oral 200 / 200 200 / 200 Output: Void Amount 1000 / 1000 # of times incontinent of urine Other: Meal Lunch Urine Appearance Clear Urine Color Dark Yellow Urine Odor Normal Stool Size Smear Stool Color Brown Stool Consistency Loose # of times incontinent of 1 Bowels Exam: General: Alert, Awake, NAD Eyes/N/T: EOMI, Head/Neck: neck supple, CV: RRR, 1/6 SM Pulm: Clear b/l, no wheezing/rhonchi/rales Abd: soft, nontender, +BS x4 Ext: no clubbing/cyanosis/edema Neuro: Alert, dementia, no focal deficits, moves all extremities Skin: warm/dry Medical - PN: Obj Da - Labs CBC & Chem 7: 02/05/18 08:47 02/05/18 08:47 Labs: Abnormal Lab Results 02/06/18 02/05/18 02/05/18 02:36 08:47 08:47 RBC 3.81 L BUN 24 H Ur Leukocyte Esterase 75 A Urine WBC 7 H Meds: Medications Acetaminophen (Tylenol) 650 mg PO Q6HP PRN PRN Reason: PAIN/FEVER > 101 Albuterol/Ipratropium (Duoneb) 3 ml NEB Q4HRT PRN PRN Reason: dyspnea Famotidine (Pepcid) 20 mg IV Q12 [facility] Last Admin: 02/07/18 20:49 Dose: 20 mg Heparin Sodium (Porcine) (Heparin) 5,000 unit SQ Q12 [facility] Last Admin: 02/07/18 20:49 Dose: 5,000 unit Ampicillin Sodium 1 gm/ Sodium (Chloride) 50 mls @ 100 mls/hr IV Q6H [facility] Last Infusion: 02/08/18 06:15 Dose: Infused Lorazepam (Ativan) 0.5 mg PO BID [facility] Last Admin: 02/07/18 20:48 Dose: 0.5 mg Morphine Sulfate (Morphine) 0 mg IV Q3HP PRN PRN Reason: PAIN LEVEL >3 Last Admin: 02/05/18 09:50 Dose: 3 mg Ondansetron HCl (Zofran) 4 mg IV Q4HP PRN PRN Reason: Nausea And Vomiting Paroxetine HCl (Paxil) 20 mg PO DAILY [facility] Last Admin: 02/07/18 08:43 Dose: 20 mg Prochlorperazine Maleate (Compazine) 12.5 mg [place] Q12HP PRN PRN Reason: Nausea And Vomiting Promethazine HCl (Phenergan) 12.5 mg IM Q6HP PRN PRN Reason: Nausea And Vomiting Quetiapine Fumarate (Seroquel) 25 mg PO BID [facility] Last Admin: 02/07/18 20:48 Dose: 25 mg Valproic Acid (Depakene) 300 mg PO BID [facility] Last Admin: 02/07/18 20:50 Dose: 300 mg Medical - PN: A/P - Time Spent With Patient Total time spent is greater than 50% in coordination of care (as documented) at patient's floor/unit and/or counseling patient: - Narrative A/P Narrative: A: *Ileus: resolving - *Advanced Dementia: *Anxiety: *current tx for UTI (h/o recent Enterococcus) *Volume Depletion: resolved * P: -full liquids -Surgery following -pending AXR -Ampicillin, d/c with amoxicillin -pain control -Ambulate, IS -bowel regimen -pt/ot, CM -ppx: heparin No Code Medical - PN: Qual - Stroke Symptom Onset Unknown: No - VTE Deep Vein Thrombosis/Pulmonary Embolism Present on Admission: No
[2018-02-08] MEDS ORDERED: guaiFENesin 600 MG TAB.SR.12H PO ONE (08:30)
[2018-02-08] MEDS: LORazepam 0.5 MG TABLET PO SCH (08:48)
[2018-02-08] MEDS: QUEtiapine 25 MG TABLET PO SCH (08:48)
[2018-02-08] MEDS: PARoxetine 20 MG TABLET PO SCH (08:49)
[2018-02-08] MEDS: HEPARIN 5,000 UNIT/ML VIAL SQ SCH (08:49)
[2018-02-08] MEDS: FAMOTIDINE/PF 20 MG/2 ML VIAL IV SCH (08:49)
[2018-02-08] MEDS: VALPROIC ACIDS 250 MG/5 ML ORAL.SOL PO SCH (08:49)
[2018-02-08 09:42] LABS: Basophils # (Auto) 0.1 K/mcL (0.0-0.3); Basophils % (Auto) 1.2 % (0.0-2.0); Eosinophils # (Auto) 0.2 K/mcL (0.0-0.7); Eosinophils % (Auto) 3.1 % (0.0-7.0); Granulocytes % (Auto) 51.7 % (38.0-78.0); Lymphocytes # (Auto) 2.3 K/mcL (1.5-4.8); Lymphocytes % (Auto) 37.9 % (15.5-49.0); Mean Cell Volume 93.2 fL (80.0-100.0); Mean Corpuscular HGB Conc 33.5 g/dL (31.0-36.0); Mean Corpuscular Hemoglobin 31.2 pg (26.0-34.0); Monocytes # (Auto) 0.4 K/mcL (0.1-0.9); Monocytes % (Auto) 6.1 % (1.0-12.0); Platelet Count 215 K/mcL (140-440); RBC 4.23 M/mcL (4.00-5.20); Red Cell Distribution Width 13.1 % (11.5-14.5)
--- NOTE | 2018-02-08 09:56 | XRay Report ---
CLINICAL INFORMATION: FOR F/U OF ILEUS COMPARISON: 02/06/2018 FINDINGS: Moderate hiatal hernia again noted. There are scattered air-fluid levels within nondilated small bowel in the upper abdomen. Most of the small bowel is decompressed. There is minimal colonic gas which appears grossly normal. No free air or soft tissue mass. IMPRESSION: Relatively decompressed GI tract with mild ileus pattern. Moderate hiatal hernia Interpreted and Authenticated by: Nigel Richardson 02/08/18
[2018-02-08 10:28] LABS: ALT/SGPT 10 U/l (0-40); Albumin 3.7 gm/dL (3.2-5.2); Albumin/Globulin Ratio 1.2 (1.0-2.3); Alkaline Phosphatase 87 U/L (39-117); Bilirubin,Direct < 0.2 mg/dL (0.0-0.3); Blood Urea Nitrogen 6 mg/dl (8-23); Gamma Glutamyl Transpeptidase 10 U/L (5-36); Uric Acid 6.2 mg/dL (2.5-8.0)
--- NOTE | 2018-02-08 12:44 | Discharge Summary ---
Medical - DS: Prov Patient information: Note initiated : 02/08/18 at 12:42 pm Service Date, if different from initiated Date: [] Patient: Omi Steve 67 y/o F admitted on 02/05/18 for Drank Soda. Chief Complaint: [] Date of admission: 02/05/18 04:30 Discharge date: 02/08/18 Primary care physician: BECKA Herring Consults: 02/05/18 Consult to Physician [CONS] Stat Comment: Consulting Provider: Te Ortega Reason For Exam: Physician to Consult Consult to Physician [CONS] Stat Comment: Consulting Provider: Kori Mcclain Reason For Exam: Physician to Consult Medical - DS: Meds - Discharge Medications Active and Home Medications: Home Medications Amoxicillin 500 mg PO Q8H 02/04/18 [History Confirmed 02/05/18 Last Taken Unknown] Ascorbic Acid [Vitamin C with Nena Hips] 500 mg PO BID 02/04/18 [History Confirmed 02/04/18 Last Taken Unknown] Cholecalciferol (Vitd3)/Vit K2 [Dosoquin Tablet] 1 each PO DAILY 02/04/18 [ History Confirmed 02/05/18 Last Taken 02/04/18] LORazepam [Ativan] 0.5 mg PO BID 02/04/18 [History Confirmed 02/05/18 Last Taken 02/04/18 18:30] Meloxicam 15 mg PO DAILY 02/04/18 [History Confirmed 02/05/18 Last Taken ] PARoxetine [Paxil] 20 mg PO DAILY 02/04/18 [History Confirmed 02/05/18 Last Taken 02/04/18 08:00] QUEtiapine [Seroquel] 25 mg PO BID 02/04/18 [History Confirmed 02/05/18 Last Taken 02/04/18] Acetaminophen [Tylenol] 650 mg PO Q4HP PRN 02/05/18 [History Confirmed 02/05/18 Last Taken Unknown] Bisacodyl [Dulcolax] 10 mg MN DAILYP PRN 02/05/18 [History Confirmed 02/05/18 Last Taken Unknown] Docusate Sodium [Colace] 100 mg PO DAILY 02/05/18 [History Confirmed 02/05/18 Last Taken Unknown] Loperamide [Imodium] 2 mg PO PRN PRN 02/05/18 [History Confirmed 02/05/18 Last Taken Unknown] Magnesium Hydroxide [Milk of Magnesia] 30 ml PO DAILYP PRN 02/05/18 [History Confirmed 02/05/18 Last Taken Unknown] Melatonin [Melatonin 3Mg Tablet] 6 mg PO HS 02/05/18 [History Confirmed Last Taken Unknown] Misoprostol [Cytotec] 100 mcg PO 3XW 02/05/18 [History Confirmed 02/05/18 Last Taken Unknown] Multivit-Min/Iron/Folic Acid/K [Adults Multivitamin Tablet] 1 tab PO DAILY 02/05 [History Confirmed 02/05/18 Last Taken Unknown] Valproic Acid (As Sodium Salt) [Valproic Acid] 300 mg PO BID 02/05/18 [History Confirmed 02/05/18 Last Taken Unknown] Vitamin D3 1,000 unit PO DAILY 02/05/18 [History Confirmed 02/05/18 Last Taken Unknown] risperiDONE MICROSPHERES [Risperdal Consta] 25 mg IM Q2W 02/05/18 [History Confirmed 02/05/18 Last Taken 01/27/18 14:00] traZODone HCL [Trazodone HCl] 25 mg PO TIDP PRN 02/05/18 [History Confirmed Last Taken Unknown] traZODone HCL [Trazodone HCl] 50 mg PO HS PRN 02/06/18 [History Confirmed Last Taken Unknown] Home Medications Ascorbic Acid [Vitamin C with Nena Hips] 500 mg PO BID 02/04/18 [History Confirmed 02/04/18 Last Taken Unknown] Cholecalciferol (Vitd3)/Vit K2 [Dosoquin Tablet] 1 each PO DAILY 02/04/18 [ History Confirmed 02/05/18 Last Taken 02/04/18] LORazepam [Ativan] 0.5 mg PO BID 02/04/18 [History Confirmed 02/05/18 Last Taken 02/04/18 18:30] Meloxicam 15 mg PO DAILY 02/04/18 [History Confirmed 02/05/18 Last Taken ] PARoxetine [Paxil] 20 mg PO DAILY 02/04/18 [History Confirmed 02/05/18 Last Taken 02/04/18 08:00] QUEtiapine [Seroquel] 25 mg PO BID 02/04/18 [History Confirmed 02/05/18 Last Taken 02/04/18] Acetaminophen [Tylenol] 650 mg PO Q4HP PRN 02/05/18 [History Confirmed 02/05/18 Last Taken Unknown] Bisacodyl [Dulcolax] 10 mg MN DAILYP PRN 02/05/18 [History Confirmed 02/05/18 Last Taken Unknown] Docusate Sodium [Colace] 100 mg PO DAILY 02/05/18 [History Confirmed 02/05/18 Last Taken Unknown] Loperamide [Imodium] 2 mg PO PRN PRN 02/05/18 [History Confirmed 02/05/18 Last Taken Unknown] Magnesium Hydroxide [Milk of Magnesia] 30 ml PO DAILYP PRN 02/05/18 [History Confirmed 02/05/18 Last Taken Unknown] Melatonin [Melatonin 3Mg Tablet] 6 mg PO HS 02/05/18 [History Confirmed Last Taken Unknown] Misoprostol [Cytotec] 100 mcg PO 3XW 02/05/18 [History Confirmed 02/05/18 Last Taken Unknown] Multivit-Min/Iron/Folic Acid/K [Adults Multivitamin Tablet] 1 tab PO DAILY 02/05 [History Confirmed 02/05/18 Last Taken Unknown] Valproic Acid (As Sodium Salt) [Valproic Acid] 300 mg PO BID 02/05/18 [History Confirmed 02/05/18 Last Taken Unknown] Vitamin D3 1,000 unit PO DAILY 02/05/18 [History Confirmed 02/05/18 Last Taken Unknown] risperiDONE MICROSPHERES [Risperdal Consta] 25 mg IM Q2W 02/05/18 [History Confirmed 02/05/18 Last Taken 01/27/18 14:00] traZODone HCL [Trazodone HCl] 25 mg PO TIDP PRN 02/05/18 [History Confirmed Last Taken Unknown] traZODone HCL [Trazodone HCl] 50 mg PO HS PRN 02/06/18 [History Confirmed Last Taken Unknown] Medical - DS: Hosp Hospital course: Ms. Steve is a 67 year old F with dementia who resides at [facility] who was brought to because of abdominal pain and belching. History is obtained from the chart and daughter as patient has advanced dementia and unable to give a history. 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 She developed a lot of belching abdominal discomfort and bloating and thus was brought into the ED. Her stomach was distended. In the ER she was found to have a partial small bowel obstruction findings on x- ray. She did have a large bowel movement while she was here. Case is discussed with Dr. Mcclain who instructed them to place an NG tube placement and he would see the patient in the morning. ER also continue treatment for urinary tract infection that she was recently started treatment on. 02/06 She is overnight. Incontinent of stool. Daughter at bedside. tolerating clears , and also had ice cream last night. 02/07 Daughter bedside. No overnight issues. Several bowel movements yesterday. Tolerating diet. 02/08 diet advanced this morning, tolerating breakfast, small BM last night. working with PT. no new complaints. Discharge diagnosis: Ileus UTI Secondary discharge diagnosis: Advanced dementia anxiety - Time Spent with Patient Total time spent providing and/or coordinating discharge services: Greater than 30 minutes Medical - DS: Exam - Constitutional Vitals: Vital Signs Temp Pulse Resp BP BP Pulse Ox 02/08/18 08:00 16 142/75 02/08/18 07:16 97.4 F 61 16 142/75 96 02/08/18 03:21 98.6 F 50 L 16 119/62 94 02/08/18 00:00 98.6 F 50 L 16 130/73 95 02/07/18 20:00 98.7 F 55 L 16 154/97 133/67 92 02/07/18 15:34 99.1 F H 59 L 16 127/71 94 Intake and Output 02/07/18 02/08/18 02/08/18 21:59 05:59 13:59 Intake Total 300 / 300 250 / 250 50 / 50 Output Total 1001 / 1001 Balance 300 / 300 -751 / -751 50 / 50 Intake: IV 100 / 100 50 / 50 50 / 50 Ampicillin 1 gm In Sodium 100 / 100 50 / 50 50 / 50 Chloride 0.9% 50 ml @ 100 mls/ hr IV Q6H [facility] Rx#:[id number] Oral 200 / 200 200 / 200 Output: Void Amount 1000 / 1000 # of times incontinent of urine Other: Meal Lunch Urine Appearance Clear Urine Color Dark Yellow Urine Odor Normal Stool Size Smear Stool Color Brown Stool Consistency Loose # of times incontinent of 1 Bowels Weight 57.408 kg Medical - DS: Data Labs on day of discharge: Labs from last 24 hours 02/08/18 02/08/18 07:59 07:59 WBC 6.1 RBC 4.23 Hgb 13.2 Hct 39.4 MCV 93.2 MCH 31.2 MCHC 33.5 RDW 13.1 Plt Count 215 MPV 8.2 Gran % 51.7 Lymph % (Auto) 37.9 [place] % (Auto) 6.1 Eos % (Auto) 3.1 Baso % (Auto) 1.2 Gran # 3.1 Lymph # (Auto) 2.3 [place] # (Auto) 0.4 Eos # (Auto) 0.2 Baso # (Auto) 0.1 Sodium 143 Potassium 4.2 Chloride 104 Carbon Dioxide 23 Anion Gap 16.0 BUN 6 L Creatinine 0.7 GFR Calculation 89 Glucose 92 Uric Acid 6.2 Calcium 10.2 Phosphorus 3.3 Magnesium 2.2 Total Bilirubin 0.4 Direct Bilirubin < 0.2 GGT 10 AST 12 ALT 10 Alkaline Phosphatase 87 Lactate Dehydrogenase 216 Total Protein 6.8 Albumin 3.7 Globulin 3.1 Albumin/Globulin Ratio 1.2 Triglycerides 146 Medical - DS: A/P - Patient/Caregiver Discharge Instructions Activity: as per physical therapy Diet: Regular Diet - Follow up Plan Follow up with: Marty Stauffer ARNP [Primary Care Provider] - Disposition: Xfer SNF Prognosis: Fair Rehab Potential: Fair I certify that the patient requires SNF services: Yes Overall status at discharge: patient is back to baseline Medical - DS: Qual - VTE Deep Vein Thrombosis/Pulmonary Embolism Present on Admission: No
[2018-02-08] MEDS ORDERED: PNEUMOCOCCAL 23-VAL P-SAC VAC 0.5 ML VIAL IM ONE (15:22)
[2018-02-08] MEDS ORDERED: guaiFENesin 600 MG TAB.SR.12H PO PRN (20:00)
== END 2018-02-08 15:40 | DRG 389 ==
LOC: ED 22:45 → MEDSUR 02-05 04:29
PROVIDERS: ADMIT Internal Medicine; ATTEND Internal Medicine
CPT/HCPCS: 97161; 97167; 99231; 90732; J0290; J0690; J1200; J1644; J2060; J2270; J2405; J7030; J7050; J7120